=== PATIENT | female | born 1955 | race Caucasian/White ===

== ENCOUNTER 2024-04-24 05:31 | Inpatient (IN) | payer MEDICARE ==
[2024-04-24] VITALS (8 sets, daily range): BP systolic 113–150; BP diastolic 63–73; PULSE 90–112; TEMP 98–100.3
[~2024-04-24] VITALS: Ht 177.8 cm; Wt 94.0 kg
[2024-04-24] MEDS ORDERED: CELEBREX 1100 MG/CAP PO (07:25)
[2024-04-24] MEDS ORDERED: TOPROL XL100 MG PO (07:26)
[2024-04-24] MEDS ORDERED: ABILIFY 10MG TA10 MG PO (07:27)
[2024-04-24] MEDS ORDERED: LYRICA 150MG C150 MG PO (07:28)
[2024-04-24] MEDS ORDERED: CYMBALTA 60MG60 MG PO (07:28)
[2024-04-24] MEDS ORDERED: COREG 6.256.25 MG/TA PO (07:29)
[2024-04-24] MEDS ORDERED: LIPITOR 40MG TA40 MG PO (07:30)
[2024-04-24] MEDS ORDERED: ULTRAM ER100 MG PO (07:32)
[2024-04-24] MEDS ORDERED: ZANAFLEX CAPSULE4 MG PO (07:32)
[2024-04-24] MEDS ORDERED: MAGNESIUM500 MG PO (07:33)
[2024-04-24] MEDS ORDERED: MELATONIN1 MG PO (07:34)
--- NOTE | 2024-04-24 08:00 | NUR ---
Oriented Pt to room and policies. Pt is A&Ox4. VSS. S1S2. Clear lungs on RA. Pt is tachycardic. ABD is round, soft, non-tender with audible bowel sounds. Palpable pulses with 4/5 strength in all extremities. Pt denies pain, n/v, headache at this time. Pt states she feels dizzy when she stands. Pt's mouth and mucus membranes appear dry. IVs from [place] in L AC and R wrist - patent, no issues. Pt has some small cuts on BLE - Pt states from dogs at home. Pt reports she has had depression for a while and has had suicidal thoughts years ago, but nothing recent. Pt requested a [facility] or private household worker comes to see her while in the hospital for support. No further needs at this time. Call light in reach.
[2024-04-24] MEDS ORDERED: Ondansetron 4 MG/2 ML VIAL IV PRN (09:15)
[2024-04-24] MEDS ORDERED: Acetaminophen 325 MG TAB PO PRN (09:15)
[2024-04-24] MEDS ORDERED: NS 1,000 ML IV SCH (09:15)
[2024-04-24] MEDS ORDERED: DULoxetine 60 MG CAP PO SCH (10:47)
[2024-04-24] MEDS ORDERED: Insulin Lispro (HumaLOG) SQ SCH (12:00)
[2024-04-24] MEDS ORDERED: Vancomycin 125 MG CAP PO SCH (12:00)
--- NOTE | 2024-04-24 12:00 | NUR ---
inserted Lafleur Catheter due to Pt stating "unable to pee" and bladder scan showing >800cc. Pt tolerated procedure well. 10cc water instilled into balloon. Approximately 900cc yellow urine came into catheter initially. UA sent to lab. [place] on Right leg. No further needs. Call light in reach.
[2024-04-24 12:05] LABS: HEMOGLOBIN 11.5 g/dl (12.5-16.0); MEAN CELL VOLUME 81 fl (80.0-100.0); MEAN CORPUSCULAR HEMOGLOBIN 29 pg (27-31); MEAN CORPUSCULAR HGB CONC 35 g/dl (33.0-37.0); MEAN PLATELET VOLUME 10.4 fl (7.4-10.4); PLATELET COUNT 225 K/mm3 (130-400); RED BLOOD COUNT 4.01 M/mm3 (4.10-5.30)
[2024-04-24 12:07] LABS: HEMATOCRIT 32.6 % (37.0-47.0)
[2024-04-24 12:08] LABS: CLOSTRIDIUM DIFF A/B POS
[2024-04-24 12:16] LABS: ALBUMIN 2.5 g/dL (3.4-4.8); BILIRUBIN,TOTAL 0.5 mg/dL (0.2-1.2); CALCIUM 8.8 mg/dL (8.4-10.2); CREATININE, serum 1.16 mg/dL (0.57-1.11); MAGNESIUM 1.9 mg/dL (1.6-2.6); PHOSPHOROUS 1.7 mg/dL (2.3-4.7); TOTAL PROTEIN 5.4 g/dl (6.2-8.1)
[2024-04-24 12:27] LABS: POTASSIUM 2.8 mEq/L (3.5-4.5)
[2024-04-24] MEDS ORDERED: POTASSIUM PHOSHATE IV ONE (12:30)
[2024-04-24] MEDS ORDERED: NS IV ONE (12:30)
[2024-04-24 12:43] LABS: BAND 29 % (0-10); LYMPHOCYTE 4 % (20.0-51.0); NEUTROPHILS 59 % (42.0-75.2); PLATELET ESTIMATE NORMAL (NORMAL)
[2024-04-24] MEDS ORDERED: NS & 40 mEq KCl 1,000 ML IV SCH (12:45)
[2024-04-24 13:21] LABS: COLLECTION METHOD IN
[2024-04-24] MEDS ORDERED: cefTRIAXone 1 G in Water For Injection,Sterile 10 ML IV SCH (13:30)
[2024-04-24 13:36] LABS: PH 6.5 (5.0-8.5); URINE APPEARANCE CLEAR (CLEAR/HAZY); URINE BLOOD NEGATIVE (NEGATIVE); URINE COLOR Dark Yellow (YELLOW); URINE GLUCOSE NEGATIVE (NEGATIVE); URINE KETONE NEGATIVE (NEGATIVE); URINE NITRATE POSITIVE (NEGATIVE); URINE PROTEIN(semi-quant) TRACE (NEGATIVE); URINE UROBILINOGEN 0.2 E.U/dL (0.2-1.0)
--- NOTE | 2024-04-24 14:00 | NUR ---
Verified pottassium orders with pharmacist prior to administration.
--- NOTE | 2024-04-24 14:27 | NUR ---
Initial visit; Patient requested Propellant Charge Loader visit. Propellant Charge Loader asked a few questions and then listened to patient and her son. Patient aid she has infections in kidneys, bladder and elsewhere. She would like prayer. Propellant Charge Loader prayed for her to feel God's presence healing her, ministering to her mind, body and spirit, since all effect the other. Patient thanked for offering prayer in thanksgiving of her ., nurses and all who are working together to bring about her healing as well.
--- NOTE | 2024-04-24 15:10 | NUR ---
HUMBLE met with patient and her son Ian to complete initial assessment for discharge planning. Patient states she lives in [place] with her son Ian ([phone]). She also lists her sister Vianey Chase ([phone]) as a contact. Patient sees Dr. Malachi Turner as her PCP and uses [facility] in [place] or [facility]. Patient reports to use CPAP, walker, cane, shower chair, grab bars on tub at home. Patient denied having a DPOA but did ask to complete one during this visit. She names her son Ian as her DPOA. Copy placed on chart, original and copies provided to patient. Discharge plan: pending medical course
[2024-04-24 18:08] LABS: CREATININE, serum 0.99 mg/dL (0.57-1.11); POTASSIUM 3.5 mEq/L (3.5-4.5)
[2024-04-24 18:22] LABS: MAGNESIUM 1.7 mg/dL (1.6-2.6); PHOSPHOROUS 2.5 mg/dL (2.3-4.7)
--- NOTE | 2024-04-24 20:00 | NUR ---
PT A&O X4 LAYING IN BED. ON TELE SINUS TACH, OTHER VITALS WNL. PT DENYING N/V. STATES SHE FEELS SORE & WEAK. PT AMBULATED TO RESTROOOM WITH X1 ASSIST & HAD LARGE WATERY STOOL. EMERSON TO DD WITH RAQUEL OUTPUT. NS W/ K+ INFUSING TO LEFT AC AT 125 MLS/HR. PT DENYING OTHER NEEDS. CALL LIGHT IN REACH
[2024-04-24] MEDS ORDERED: Atorvastatin 10 MG TAB PO SCH (21:00)
[2024-04-24] MEDS ORDERED: ARIPiprazole 10 MG TAB PO SCH (21:00)
[2024-04-24] MEDS ORDERED: Pregabalin 150 MG CAP PO SCH (21:00)
[2024-04-24] MEDS ORDERED: Celecoxib 100 MG CAP PO SCH (21:00)
[2024-04-24] MEDS ORDERED: Carvedilol 6.25 MG TAB PO SCH (21:00)
[2024-04-24] MEDS ORDERED: tiZANidine 4 MG TAB PO SCH (21:00)
[2024-04-24] MEDS ORDERED: NS 1,000 ML IV ONE (23:45)
[2024-04-25] VITALS (10 sets, daily range): BP systolic 78–118; BP diastolic 47–71; PULSE 71–94; TEMP 98.2–98.5
--- NOTE | 2024-04-25 00:02 | NUR ---
PT BP 84/56, NOTIFIED HOSPITALIST DR DAVIS. NEW ORDER FOR IVF BOLUS, GAVE PER MAR
--- NOTE | 2024-04-25 01:15 | NUR ---
IVF BOLUS COMPLETE. RECHECK BP WAS 78/56. PT DENYING DIZZINESS/ LIGHTHEADEDNESS, PT STATES "I ACTUALLY FEEL A LOT BETTER". PT DOES DOZE OFF TO SLEEP MID CONVERSATION BUT EASILY AWAKENED. HOSPITALIST DR DAVIS NOTIFED, SEE NEW ORDERS
--- NOTE | 2024-04-25 03:20 | NUR ---
report given to urszula rn & pt transported to icu bed 2 with personal belongings
[2024-04-25 05:06] LABS: HEMOGLOBIN 10.3 g/dl (12.5-16.0); MEAN CELL VOLUME 83 fl (80.0-100.0); MEAN CORPUSCULAR HEMOGLOBIN 28 pg (27-31); MEAN CORPUSCULAR HGB CONC 34 g/dl (33.0-37.0); PLATELET COUNT 195 K/mm3 (130-400); RED BLOOD COUNT 3.65 M/mm3 (4.10-5.30); REDCELL DISTRIBUTION WIDTH-CV 14.4 % (11.5-14.5)
[2024-04-25 05:17] LABS: HEMATOCRIT 30.4 % (37.0-47.0)
[2024-04-25 05:19] LABS: CALCIUM 7.9 mg/dL (8.4-10.2); CREATININE, serum 1.07 mg/dL (0.57-1.11); POTASSIUM 3.8 mEq/L (3.5-4.5)
[2024-04-25 05:58] LABS: BAND 39 % (0-10); EOSINOPHIL 1 % (0-4); LYMPHOCYTE 5 % (20.0-51.0); NEUTROPHILS 47 % (42.0-75.2)
[2024-04-25 06:00] LABS: PLATELET ESTIMATE NORMAL (NORMAL)
[2024-04-25] MEDS ORDERED: metroNIDAZOLE 100 ML IV SCH (06:00)
[2024-04-25 06:01] LABS: BURR CELLS 1+
[2024-04-25] MEDS ORDERED: Glucagon 1 MG VIAL IM PRN (08:00)
[2024-04-25] MEDS ORDERED: Dextrose (Glucose) 15 GM (4 x 3.75 GM) Chewable TABLET PACK PO PRN (08:00)
[2024-04-25] MEDS ORDERED: Dextrose 50% Water 25 GM/50 ML SYRINGE IV PRN (08:00)
--- NOTE | 2024-04-25 08:06 | NUR ---
0315 PT ADMITTED TO ICU BED 2. PT PINK, WARM, AND DRY. ALERT AND ORIENTED. BP ON ARRIVAL 93/51, MAP 61. PT ASYMPTOMATIC. STATES THAT SHE INFORMED STAFF THAT THIS WAS HER NORMAL. STATES HER BLOOD PRESSURE WILL BE LOW AT TIMES BUT DOES COME BACK TO WNL. 0600 PT REMAINS STABLE ON ROUNDS. IVF INFUSING. LEVOPHED WAS NOT NEEDED. RESPIRATIONS EVEN AND UNLABORED. NO SIGN OF DISTRESS AT THIS TIME. CONTINUE PLAN OF CARE.
--- NOTE | 2024-04-25 08:30 | NUR ---
Report received from HERBERTH Santiago; patient currently resting in bed with eyes closed. Patient has NS with Potassium running through her peripheral IV; patient has a Lafleur catheter in place, is on room air; no other lines or tubes are in place at this time. Patient's vital signs are within normal limits this morning.
--- NOTE | 2024-04-25 10:58 | NUR ---
SW met with patient and confirmed patient's insurance is Medicare Advantage [facility]. Patient reports she has been able to afford her medications but is aware of [facility] if she needs to use it. SW discussed home health services. Patient stated she does not have home health but would be open to those services if recommended. Patient stated she did not have a DPOA-HC but was uncertain on whom to appoint. SW left form and will return later. Patient would like to return home when ready for discharge. SW reviewed patient's chart and found a DPOA-HC completed yesterday with her appointing Ian as primary and Daquan as secondary. SW met with patient and confirmed she would like to keep that form the same, no changes needed to be made. Discharge plan: Home
--- NOTE | 2024-04-25 14:40 | NUR ---
Reported off to Marichuy Escobar RN; patient taken upstairs to medical 310. All patient's belongings were sent up with patient. Patient was taken up in a wheelchair by this nurse; NS with 40 mEq of potassium was running through her peripheral line at 75 mL/hr. Patient on room air and vital signs within normal limits. Met Marichuy Escobar in room who then helped patient to the bathroom.
--- NOTE | 2024-04-25 14:45 | NUR ---
Patient transferred from ICU to medical around 1430. Patient alert and oriented x4. Skin intact. Gait steady with SBA. NS infusing per orders. Patient voices no concerns at this time. Stable on room air. Call light within reach, all needs met at this time. States bowel movement frequency has slowed down, had a small and loose BM shortly after arrival.
[2024-04-25] MEDS ORDERED: Atorvastatin 40 MG TAB PO SCH (21:00)
--- NOTE | 2024-04-25 22:38 | NUR ---
PATIENT IS RESTING IN BED WATCHING TV. STATES HER DIARRHEA HAS DECREASED IN FREQUENCY TODAY AND REPORTS ABDOMINAL CRAMPING A 3/10. DENIES ANY NAUSEA AT THIS TIME. ASSISTED PATIENT TO RESTROOM, GAIT STEADY BUT WEAK. HELPED PATIENT BACK INTO BED, CALL LIGHT IS WITHIN REACH. BED LOCKED AND IN LOW POSITION.
[2024-04-25] MEDS ORDERED: NS 500 ML IV ONE (23:45)
--- NOTE | 2024-04-25 23:53 | NUR ---
PCT INFORMED RN OF DIASTOLIC BLOOD PRESSURE IN THE 80s, UPON RECHECK ON OPPOSITE ARM, BP WAS 79/47. RN INFORMED HOSPITALIST. NEW ORDER RECEIVED FOR 500 ML BOLUS OF NORMAL SALINE NOW.
--- NOTE | 2024-04-26 01:02 | NUR ---
BLOOD PRESSURE FOLLOWING 500 ML BOLUS IS 77/50.
--- NOTE | 2024-04-26 01:31 | NUR ---
INFORMED DR. Isis DAVIS OF BLOOD PRESSURE FOLLOWING BOLUS. ORDERS TO CONTINUE PATIENT'S ORDERED IV FLUIDS AND INCREASE RATE FROM 75ML/HR TO 150 ML/HR.
[2024-04-26 03:51] VITALS: BP 100/66; PULSE 85; TEMP 98.2
[2024-04-26 06:30] LABS: MEAN CELL VOLUME 85 fl (80.0-100.0); MEAN CORPUSCULAR HGB CONC 34 g/dl (33.0-37.0); PLATELET COUNT 224 K/mm3 (130-400); RED BLOOD COUNT 3.19 M/mm3 (4.10-5.30); REDCELL DISTRIBUTION WIDTH-CV 14.8 % (11.5-14.5)
[2024-04-26 06:34] LABS: HEMOGLOBIN 9.3 g/dl (12.5-16.0); MEAN CORPUSCULAR HEMOGLOBIN 29 pg (27-31)
[2024-04-26 06:42] LABS: CALCIUM 8.3 mg/dL (8.4-10.2); CREATININE, serum 0.81 mg/dL (0.57-1.11); POTASSIUM 3.8 mEq/L (3.5-4.5)
[2024-04-26 07:13] LABS: BAND 26 % (0-10); BASOPHIL 1 % (0-2); EOSINOPHIL 1 % (0-4); LYMPHOCYTE 9 % (20.0-51.0); NEUTROPHILS 61 % (42.0-75.2); PLATELET ESTIMATE NORMAL (NORMAL)
[2024-04-26 08:26] VITALS: BP 111/75; PULSE 91; TEMP 98.4
[2024-04-26] MEDS ORDERED: Magnesium Sulfate 4 GM/50 ML IV SOLN IV ONE (08:45)
[2024-04-26] MEDS ORDERED: LR 1,000 ML IV SCH (08:45)
[2024-04-26] MEDS ORDERED: Magnesium Oxide 400 MG TAB PO SCH (09:00)
[2024-04-26] MEDS ORDERED: Sodium Bicarbonate 650 MG TAB PO SCH (09:00)
[2024-04-26 11:54] VITALS: BP 125/71; PULSE 92; TEMP 98.2
--- NOTE | 2024-04-26 13:05 | NUR ---
PATIENT EMERSON REMOVED PER DOCTORS ORDERS.
[2024-04-26 16:40] VITALS: BP 124/78; PULSE 87; TEMP 98.2
[2024-04-26 20:00] VITALS: BP 133/84; PULSE 72; TEMP 98.6
[2024-04-26 22:55] VITALS: BP 135/80; PULSE 91; TEMP 98.2
[2024-04-27] VITALS (7 sets, daily range): BP systolic 106–143; BP diastolic 71–92; PULSE 74–101; TEMP 98.1–99.3
[2024-04-27 06:49] LABS: MEAN CELL VOLUME 83 fl (80.0-100.0); MEAN CORPUSCULAR HGB CONC 34 g/dl (33.0-37.0); MEAN PLATELET VOLUME 9.5 fl (7.4-10.4); PLATELET COUNT 260 K/mm3 (130-400); REDCELL DISTRIBUTION WIDTH-CV 14.3 % (11.5-14.5)
[2024-04-27 06:54] LABS: HEMATOCRIT 28.1 % (37.0-47.0); HEMOGLOBIN 9.6 g/dl (12.5-16.0); MEAN CORPUSCULAR HEMOGLOBIN 28 pg (27-31)
[2024-04-27 07:03] LABS: CALCIUM 8.4 mg/dL (8.4-10.2); CREATININE, serum 0.81 mg/dL (0.57-1.11); POTASSIUM 3.2 mEq/L (3.5-4.5)
[2024-04-27 07:29] LABS: BAND 21 % (0-10); EOSINOPHIL 1 % (0-4); LYMPHOCYTE 11 % (20.0-51.0); METAMYELOCYTE 1 % (0-0); NEUTROPHILS 61 % (42.0-75.2)
[2024-04-27 07:30] LABS: PLATELET ESTIMATE NORMAL (NORMAL)
--- NOTE | 2024-04-27 09:18 | NUR ---
patient alert anr oriented x4. patient denies pain at this time. expresses had a good night sleep. patient denies soa, dizziness or other concerns at this time. fluids running per order. patient shift assessment completed. call light within reach. bed alarm on.
[2024-04-27] MEDS ORDERED: Potassium Bicarbonate/Citrate 20 MEQ Effervescent TAB PO SCH (10:30)
[2024-04-27] MEDS ORDERED: *Potassium Replacement Protocol MC SCH (10:30)
--- NOTE | 2024-04-27 15:05 | NUR ---
Paper Inserter met with patient to discuss Home Health services and provide Medicare.gov list of HH options. Patient stated she will consider the options.
[2024-04-28] VITALS: BP_SYST 106
[2024-04-28 03:28] VITALS: BP 130/81; PULSE 83; TEMP 98.7
[2024-04-28 04:00] VITALS: BP_SYST 130
[2024-04-28 07:28] LABS: HEMOGLOBIN 10.2 g/dl (12.5-16.0); MEAN CELL VOLUME 86 fl (80.0-100.0); MEAN CORPUSCULAR HEMOGLOBIN 29 pg (27-31); MEAN CORPUSCULAR HGB CONC 34 g/dl (33.0-37.0); MEAN PLATELET VOLUME 9.5 fl (7.4-10.4); PLATELET COUNT 259 K/mm3 (130-400); RED BLOOD COUNT 3.52 M/mm3 (4.10-5.30); REDCELL DISTRIBUTION WIDTH-CV 14.5 % (11.5-14.5)
[2024-04-28 07:40] LABS: HEMATOCRIT 30.1 % (37.0-47.0)
[2024-04-28 07:41] LABS: CREATININE, serum 0.84 mg/dL (0.57-1.11); POTASSIUM 3.6 mEq/L (3.5-4.5)
[2024-04-28 07:44] VITALS: BP 118/78; PULSE 87; TEMP 98.2
[2024-04-28] MEDS ORDERED: Potassium Bicarbonate/Citrate 20 MEQ Effervescent TAB PO SCH (09:00)
[2024-04-28 09:43] LABS: BAND 11 % (0-10); EOSINOPHIL 1 % (0-4); LYMPHOCYTE 5 % (20.0-51.0); NEUTROPHILS 72 % (42.0-75.2); PLATELET ESTIMATE NORMAL (NORMAL)
[2024-04-28] MEDS ORDERED: VANCOCIN H125 MG/CAP PO (09:50)
[2024-04-28] MEDS ORDERED: ZOFRAN ODT4 MG PO (09:50)
--- NOTE | 2024-04-28 10:00 | NUR ---
PATIENT ALERT AND ORIENTED X4. PATIENT DENIES PAIN AT THIS TIME. PATIENT ON ROOM AIR. HAD A BOWEL MOVEMENT THROUGHOUT THE NIGHT. PATIENT DENIES ANY OTHER CONCERNS AT THIS TIME. SHIFT ASSESSMENT COMPLETED. CALL LIGHT WITHIN REACH.
[2024-04-28] MEDS ORDERED: COREG 3.123.125 MG/T PO (10:14)
--- NOTE | 2024-04-28 11:16 | NUR ---
patient discharge instructions given. patient verbalized understanding. patient denied any concerns or questions. patient IV removed. patient instructed to call when ride is here for PCT to transport her to the hospital entrace. call light within reach. bed at lowest position.
[2024-04-28 11:50] VITALS: BP 123/83; PULSE 92; TEMP 98.4
--- NOTE | 2024-04-28 12:00 | NUR ---
patient escorted out of unit by PCT
--- NOTE | 2024-04-28 17:28 | NUR ---
Hangersmith met with patient to present and review IM form. Patient verbalized understanding and provided verbal consent as signature as she is in contact isolation for Cdiff. HUMBLE placed form in chart and provided copy to patient. Patient selected [facility] from the Medicare.gov list of HH options. HUMBLE student faxed [facility] and faxed referral with discharge orders. HUMBLE colin left a message for the sanitation director number as the office was closed.
== END 2024-04-28 17:36 | disposition home or self-care (01) | DRG 872 ==
LOC: SURG 05:31 → ICU 08:11 → SURG 08:12 → ICU 04-25 01:37 → SURG 04-25 01:37 → ICU 04-25 01:37 → MEDICAL 04-25 14:30
PROVIDERS: Internal Medicine; Nurse Practitioner Family; Physician Assistant; ADMIT Internal Medicine
DX: A41.9 Sepsis, unspecified organism (principal); N39.0 Urinary tract infection, site not specified; A04.72 Enterocolitis due to Clostridium difficile, not specified as recurrent; E87.1 Hypo-osmolality and hyponatremia; E87.20 Acidosis, unspecified; E44.0 Moderate protein-calorie malnutrition; M86.8X7 Other osteomyelitis, ankle and foot; R65.20 Severe sepsis without septic shock; E86.1 Hypovolemia; E87.8 Other disorders of electrolyte and fluid balance, not elsewhere classified; E87.6 Hypokalemia; E83.42 Hypomagnesemia; E78.5 Hyperlipidemia, unspecified; F32.A Depression, unspecified; G47.33 Obstructive sleep apnea (adult) (pediatric); R09.02 Hypoxemia; M79.7 Fibromyalgia; I10 Essential (primary) hypertension; I45.81 Long QT syndrome; E11.40 Type 2 diabetes mellitus with diabetic neuropathy, unspecified; G40.909 Epilepsy, unspecified, not intractable, without status epilepticus; E11.69 Type 2 diabetes mellitus with other specified complication; I95.9 Hypotension, unspecified; K21.9 Gastro-esophageal reflux disease without esophagitis; B96.1 Klebsiella pneumoniae [K. pneumoniae] as the cause of diseases classified elsewhere; Z90.49 Acquired absence of other specified parts of digestive tract; Z90.710 Acquired absence of both cervix and uterus; Z90.89 Acquired absence of other organs; Z86.14 Personal history of Methicillin resistant Staphylococcus aureus infection; Z79.899 Other long term (current) drug therapy; Z87.891 Personal history of nicotine dependence; Z88.2 Allergy status to sulfonamides; Z23 Encounter for immunization; Z68.29 Body mass index [BMI] 29.0-29.9, adult
CPT/HCPCS: A4314; J0696; J1650; J1815; J1836; J3475; J3480; J7030; J7040; J7120

== ENCOUNTER → 2024-06-19 | Outpatient (CLI) | payer MEDICARE, OTHER ==
[~2024-06-19] MED LIST: ABILIFY 10MG TA10 MG PO; CELEBREX 1100 MG/CAP PO; COREG 3.123.125 MG/T PO; COREG 6.256.25 MG/TA PO; CYMBALTA 60MG60 MG PO; LIPITOR 40MG TA40 MG PO; LYRICA 150MG C150 MG PO; MAGNESIUM500 MG PO; MELATONIN1 MG PO; TOPROL XL100 MG PO; ULTRAM ER100 MG PO; VANCOCIN H125 MG/CAP PO; ZANAFLEX CAPSULE4 MG PO; ZOFRAN ODT4 MG PO
== END ==
LOC: MHCPAIN 13:34
DX: M54.50 Low back pain, unspecified (principal)
CPT/HCPCS: G0463

== ENCOUNTER → 2024-07-07 | Outpatient (CLI) | payer MEDICARE, OTHER | LOC: MHCPAIN 10:21 | DX: M54.12 Radiculopathy, cervical region (principal); M79.7 Fibromyalgia; M47.812 Spondylosis without myelopathy or radiculopathy, cervical region; Z98.1 Arthrodesis status | CPT/HCPCS: G0463 ==